=== PATIENT | female | born 1985 | race Hispanic/Latino ===

== ENCOUNTER 2016-11-14 01:59 | Emergency (ER) | payer SELFPAY ==
[2016-11-14 02:05] VITALS: BP 156/78; PULSE 73; RESP 20; TEMP 98.9; O2SAT 100
[2016-11-14 02:50] LABS: URINE BILIRUBIN SMALL (NEGATIVE); URINE COLOR LIGHT BROWN (YELLOW); URINE GLUCOSE (UA) NEGATIVE (Normal); URINE KETONE NEGATIVE (NEGATIVE)
[2016-11-14 02:50] LABS: BASO # 0.1 K/uL (0.0-0.2); BASO % 1.1 % (0.0-2.0); EOS # 0.3 K/uL (0.0-0.7); EOS % 2.3 % (0.0-4.0); HEMATOCRIT 36.3 % (34.0-47.0); LYMPH # 1.8 K/uL (1.0-4.3); LYMPH % 15.9 % (20.0-40.0); MEAN CORPUSCULAR HEMOGLOBIN 26.9 pg (27.0-31.0); MEAN CORPUSCULAR HGB CONC 32.3 g/dL (33.0-37.0); MONO # 0.8 K/uL (0.0-0.8); MONO % 7.2 % (0.0-10.0); NEUT # 8.2 K/uL (1.8-7.0); NEUT % 73.5 % (50.0-75.0); NRBC % 0.1 % (0.0-0.0); RED CELL DISTRIBUTION WIDTH 14.3 % (11.5-14.5); WHITE BLOOD COUNT 11.2 K/uL (4.8-10.8)
[2016-11-14 02:51] LABS: URINE BLOOD LARGE (NEGATIVE); URINE PROTEIN TRACE mg/dL (NEGATIVE)
[2016-11-14 02:52] LABS: URINE LEUKOCYTE ESTERASE TRACE Leu/uL (Negative); URINE UROBILINOGEN 0.2 mg/dL (0.2-1.0)
[2016-11-14 02:53] LABS: RBC URINE 2075 /hpf (0-3); WBC URINE 19 /hpf (0-5)
--- NOTE | 2016-11-14 04:11 | ED PDOC ---
HPI: Abdomen Time Seen by Provider: 11/14/16 02:04 Chief Complaint (Nursing): Abdominal Pain Chief Complaint (Provider): Abdominal Pain History Per: Patient History/Exam Limitations: no limitations Onset/Duration Of Symptoms: Days (1x) Current Symptoms Are (Timing): Still Present Severity: Moderate Location Of Pain/Discomfort: Suprapubic Quality Of Discomfort: Cramping Associated Symptoms: denies: Nausea, Vomiting Additional Complaint(s): 31 year old female , 7 weeks , presents to the ED with complaints of abdominal cramping pain that started yesterday with associated symptoms of spotting (mild bleeding). She states that she hasn't had an ultrasound during her yet, the first one is scheduled 5x days from today. She denies having any other symptoms including nausea and vomiting. PMD: Zoie Craig MD Abnormal Vaginal Bleeding: Yes : 1 Para: 0 Past Medical History Reviewed: Historical Data, Nursing Documentation, Vital Signs Vital Signs: Last Vital Signs Temp 98.9 F 11/14/16 02:03 Pulse 73 11/14/16 02:03 Resp 20 11/14/16 02:03 BP 156/78 H 11/14/16 02:03 Pulse Ox 100 11/14/16 04:27 - Medical History PMH: No Chronic Diseases - Family History Family History: States: Unknown Family Hx - Social History Alcohol: None Drugs: Denies - Home Medications Home Medications: Ambulatory Orders Medication Instructions Recorded Vit No.126/Iron/FA 1 tab PO DAILY 11/14/16 [Classic Tablet] - Allergies Allergies/Adverse Reactions: Allergies Allergy/AdvReac Type Severity Reaction Status Date / Time No Known Allergies Allergy Verified 11/14/16 02:02 Review of Systems ROS Statement: Except As Marked, All Systems Reviewed And Found Negative Gastrointestinal: Positive for: Abdominal Pain (cramping). Negative for: Nausea , Vomiting Genitourinary Female: Positive for: Vaginal Bleeding (mild bleeding) Physical Exam - Reviewed Nursing Documentation Reviewed: Yes Vital Signs Reviewed: Yes - Physical Exam Appears: Positive for: Well, Non-toxic, No Acute Distress Head Exam: Positive for: ATRAUMATIC, NORMOCEPHALIC Skin: Positive for: Normal Color Eye Exam: Positive for: Normal appearance ENT: Positive for: Normal ENT Inspection Neck: Positive for: Normal Cardiovascular/Chest: Positive for: Regular Rate, Rhythm Respiratory: Positive for: Normal Breath Sounds Pelvic Exam: Positive for: External Exam Normal, Bimanual Exam Normal, No Cerv. 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 OS is finger with apart) Neurologic/Psych: Positive for: Alert, Oriented (3x) - Laboratory Results Result Diagrams: 11/14/16 02:46 11/14/16 02:46 - ECG O2 Sat by Pulse Oximetry: 100 (RA) Pulse Ox Interpretation: Normal - CT Scan/US US transvaginal Other Rad Studies (CT/US): Read By Radiologist, Radiology Report Reviewed Medical Decision Making Medical Decision Makin:04 Initial impression: 31 year old female with abdominal cramping and spotting. Differential diagnoses include but are not limited to a threatened vs spontaneous vs ectopic . Initial plan: * US OB transvaginal * type and screen * BMP * beta-hcg guantitative * CBC * chlamydia/GC RNA, TMA * urine culture * urinalysis * reevaluation 3:37 FINDINGS: Gestation: Irregular elongated gestational sac extending into cervical canal. pole. No heartbeat detected. Mikes-rump length of 1.11 cm, correlating with gestational age of 7 weeks 2 days. Mean sac diameter of 4.27 cm, correlating with gestational age of 9 weeks 5 days. Uterus/cervix: No subchorionic hemorrhage. Open cervix with gestational sac extending into cervical canal. Ovaries: Normal ovaries. No adnexal masses. Free fluid: No significant free fluid. IMPRESSION: 1. Findings compatible with demise/ in progress. 2. Incidental/non-acute findings are described above. 4:19 Discussed ultrasound report and findings with patient. Informed patient about diagnosis and explained that she will likely experience increased bleeding as she expels the fetus. Patient will follow up with her [facility] this week. Scribe Attestation: Documented by Preeti Harman, acting as a scribe for Uriel Strauss MD. Provider Scribe Attestation: All medical record entries made by the Scribe were at my direction and personally dictated by me. I have reviewed the chart and agree that the record accurately reflects my personal performance of the history, physical exam, medical decision making, and the department course for this patient. I have also personally directed, reviewed, and agree with the discharge instructions and disposition. Disposition - Clinical Impression Clinical Impression: , spontaneous - Disposition Disposition Time: 04:19 Condition: STABLE Additional Instructions: Please followup at your scheduled appointment for a repeat ultrasound. Instructions: Spontaneous Miscarriage (ED)
[2016-11-14 04:34] LABS: BLOOD UREA NITROGEN 13 mg/dl (7-17); GFR AFRICAN-AMERICAN > 60; GLUCOSE,RANDOM 103 mg/dL (65-105); POTASSIUM 4.1 MMOL/L (3.6-5.0); SODIUM 140 mmol/l (132-148)
[2016-11-14 04:35] LABS: CALCIUM 9.7 mg/dL (8.4-10.2); CARBON DIOXIDE 24 mmol/L (22-30); CHLORIDE 105 mmol/L (98-107)
--- NOTE | 2016-11-14 12:41 | US ---
PROCEDURE: OB Pelvic Ultrasound HISTORY: 12 wks, abd pain, VB COMPARISON: None available. FINDINGS: UTERUS: Single Live intrauterine gestation. CRL equivalent to 7 weeks and 2 days gestatioin Gestational sac diameter equivalent to 9 weeks and 5 days gestation age (Ultrasound estimated): 8 weeks and 4 days Date of delivery (Ultrasound estimated) : 06/22/2017 Heart rate: bpm. Octavia-gestational hemorrhage: None. Uterus measures 11.8 x 6.4 x 0.3 cm. Single intrauterine gestation with a irregular elongated gestational cyst extending into the cervical canal. heart cardiac activity is not identified. CERVIX: Open cervix with gestational sac extending into the canal. RIGHT OVARY: Measures 2.5 x 1.9 x 2.0 cm. No mass. Normal flow. LEFT OVARY: Measures 2.2 x 1.5 x 1.7 cm. No mass. Normal flow. FREE FLUID: None. OTHER FINDINGS: None. IMPRESSION: Single intrauterine gestation with mean gestational age of 8 weeks and 4 days. cardiac activity cannot be documented and findings are concerning for demise/ in progress. A preliminary report was provided by [facility].
== END 2016-11-14 04:30 | disposition home or self-care (01) ==
LOC: H.ER 01:59
DX: O03.9 Complete or unspecified spontaneous abortion without complication (principal); R10.9 Unspecified abdominal pain; Z3A.08 8 weeks gestation of pregnancy

== ENCOUNTER 2016-11-26 22:21 | Emergency (ER) | payer SELFPAY ==
[2016-11-26 22:34] VITALS: BP 131/71; PULSE 74; RESP 18; TEMP 98.6; O2SAT 100
[2016-11-26] MEDS ORDERED: Lactated Ringer's 1,000 ML IV STA (23:30)
[2016-11-27 00:06] LABS: BASO # 0.1 K/uL (0.0-0.2); BASO % 0.6 % (0.0-2.0); EOS # 0.2 K/uL (0.0-0.7); EOS % 1.4 % (0.0-4.0); HEMATOCRIT 30.9 % (34.0-47.0); LYMPH # 1.8 K/uL (1.0-4.3); LYMPH % 13.8 % (20.0-40.0); MEAN CELL VOLUME 81.7 fl (81.0-99.0); MEAN CORPUSCULAR HEMOGLOBIN 26.6 pg (27.0-31.0); MEAN CORPUSCULAR HGB CONC 32.5 g/dL (33.0-37.0); MEAN PLATELET VOLUME 8.3 fl (7.2-11.7); MONO # 0.6 K/uL (0.0-0.8); MONO % 4.8 % (0.0-10.0); NEUT # 10.3 K/uL (1.8-7.0); NEUT % 79.4 % (50.0-75.0); RED CELL DISTRIBUTION WIDTH 14.1 % (11.5-14.5)
[2016-11-27 00:12] LABS: ALB/GLOB RATIO 1.2 (1.0-2.1); ALKALINE PHOSPHATASE 77 U/L (38-126); ALT/SGPT 24 U/L (9-52); AST/SGOT 24 U/L (14-36); BILIRUBIN,TOTAL 0.4 mg/dl (0.2-1.3); BLOOD UREA NITROGEN 16 mg/dl (7-17); CALCIUM 9.9 mg/dL (8.4-10.2); CARBON DIOXIDE 25 mmol/L (22-30); CHLORIDE 105 mmol/L (98-107); GFR AFRICAN-AMERICAN > 60; GLUCOSE,RANDOM 113 mg/dL (65-105); LIPASE 66 U/L (23-300); SODIUM 140 mmol/l (132-148); TOTAL PROTEIN 7.5 G/DL (6.3-8.2)
[2016-11-27] MEDS ORDERED: Sodium Chloride 0.9% 50 ML IV ONE (00:30)
[2016-11-27] MEDS ORDERED: Iohexol 300 100 ML IJ ONE (00:30)
--- NOTE | 2016-11-27 00:34 | ED PDOC ---
HPI: Abdomen Time Seen by Provider: 11/26/16 22:49 Chief Complaint (Nursing): Abdominal Pain Chief Complaint (Provider): Right Upper Quadrant Pain History Per: Patient History/Exam Limitations: no limitations Onset/Duration Of Symptoms: Hrs (since 17:00 11/26/16) Current Symptoms Are (Timing): Still Present Location Of Pain/Discomfort: RUQ Additional Complaint(s): 22:49 Citlaly Burns is a 31 year old female with a history of asthma that presents to the ED with a chief complaint of sharp, constant RUQ pain that she has been experiencing since 5 PM today. Patient states that the paint has been worsening since onset and slightly radiated to her back as well as that she has never experienced this type of pain before. She adenies any nausea, vomiting, diarrhea, constipation, vaginal discharge or vaginal bleeding. Of note: Patient had a recent miscarriage two weeks ago. Past Medical History Reviewed: Historical Data, Nursing Documentation, Vital Signs Vital Signs: Last Vital Signs Temp 98.6 F 11/26/16 22:32 Pulse 74 11/26/16 22:32 Resp 18 11/26/16 22:32 BP 131/71 11/26/16 22:32 Pulse Ox 100 11/27/16 02:48 - Medical History PMH: Asthma - Surgical History Surgical History: No Surg Hx - Family History Family History: States: Unknown Family Hx - Social History Current smoker - smoking cessation education provided: No - Home Medications Home Medications: Ambulatory Orders Medication Instructions Recorded Vit No.126/Iron/Folic 1 tab PO DAILY 11/14/16 [Classic Tablet] oxyCODONE/Acetaminophen [Percocet 1 ea PO Q6 PRN #8 tab 11/27/16 5/325 mg Tab] - Allergies Allergies/Adverse Reactions: Allergies Allergy/AdvReac Type Severity Reaction Status Date / Time No Known Allergies Allergy Verified 11/14/16 02:02 Review of Systems Gastrointestinal: Positive for: Abdominal Pain (ruq pain). Negative for: Nausea , Vomiting, Diarrhea, Constipation Musculoskeletal: Positive for: Back Pain (ruq pain slightly radiates to back) Physical Exam - Reviewed Nursing Documentation Reviewed: Yes Vital Signs Reviewed: Yes - Physical Exam Appears: Positive for: Non-toxic, In Acute Distress (in moderate painful distress) Head Exam: Positive for: ATRAUMATIC, NORMOCEPHALIC Skin: Positive for: Normal Color, Warm Cardiovascular/Chest: Positive for: Regular Rate, Rhythm. Negative for: Murmur Respiratory: Positive for: Normal Breath Sounds. Negative for: Wheezing Gastrointestinal/Abdominal: Positive for: Soft. Negative for: Mass, Distended, Guarding, Rebound Back: Positive for: R CVA Tenderness. Negative for: L CVA Tenderness, Vertebral Tenderness, Decreased ROM, Muscle Spasm Neurologic/Psych: Positive for: Alert, Oriented - Laboratory Results Result Diagrams: 11/26/16 00:03 11/26/16 00:03 - ECG O2 Sat by Pulse Oximetry: 100 (RA) Pulse Ox Interpretation: Normal Medical Decision Making Medical Decision Makin:26 Initial Impression: RUQ Pain Initial Plan: * CT A/P with IV contrast * Urine dip * Urine preg * Lactated ringers 1000 mL * Morphine 4 mg * Reevalutation 00:00 Will endorse patient to Dr. Manuel MD. Scribe Attestation: Documented by Janett Ledesma, acting as a scribe for Anisa Jiménez MD. Provider Scribe Attestation: All medical record entries made by the Scribe were at my direction and personally dictated by me. I have reviewed the chart and agree that the record accurately reflects my personal performance of the history, physical exam, medical decision making, and the department course for this patient. I have also personally directed, reviewed, and agree with the discharge instructions and disposition. Disposition - Clinical Impression Clinical Impression: Abdominal pain - Disposition Disposition: Transfer of Care Disposition Time: 00:00 Condition: STABLE Prescriptions: oxyCODONE/Acetaminophen [Percocet 5/325 mg Tab] 1 ea PO Q6 PRN #8 tab PRN Reason: Pain, Severe (8-10)
[2016-11-27 01:00] LABS: PARTIAL THROMBOPLASTIN TIME 25.7 SECONDS (23.3-32.5)
--- NOTE | 2016-11-27 01:09 | ED PDOC ---
- Laboratory Results Result Diagrams: 11/26/16 00:03 11/26/16 00:03 - ECG O2 Sat by Pulse Oximetry: 100 (RA) - Progress Re-evaluation Time: 02:48 Condition: Re-examined, Improved Medical Decision Making Medical Decision Makin:00 Patient transferred over to Dr. Jackson pending CT Abdomen. EXAM: CT Abdomen and Pelvis With Intravenous Contrast CLINICAL HISTORY: 31 years old, female; Pain; Abdominal pain; Localized; Right upper quadrant (ruq ); Additional info: Abd pain ruq TECHNIQUE: Axial computed tomography images of the abdomen and pelvis with intravenous contrast. This CT exam was performed using one or more of the following dose reduction techniques : automated exposure control, adjustment of the mA and/or kV according to patient size, and/ or use of iterative reconstruction technique. Coronal and sagittal reformatted images were created and reviewed. CONTRAST: 95 mL of [id number] administered intravenously. COMPARISON: US - OB TRANSVAGINAL 11/14/2016 3:02:48 AM FINDINGS: The liver, spleen, pancreas and adrenal glands demonstrate no acute abnormalities. The kidneys are symmetric with no evidence of hydronephrosis. The aorta is unremarkable. Small bowel demonstrates bowel wall thickening consistent with acute enteritis. Question bowel wall thickening involving the colon. Small amount of ascites. No free air. Bilateral L5 pars defect. IMPRESSION: Small bowel demonstrates bowel wall thickening consistent with acute enteritis. Question bowel wall thickening involving the colon. Small amount of ascites. Bilateral L5 pars defec Disposition Doctor Will See Patient In The: Office Counseled Patient/Family Regarding: Studies Performed, Diagnosis, Need For Followup - Clinical Impression Clinical Impression: Enteritis, Abdominal pain - POA Present On Arrival: None - Disposition Referrals: Elsa Disla MD [Medical Doctor] - Disposition: Routine/Home Disposition Time: 02:46 Condition: GOOD Additional Instructions: Return for worsening. Follow up with your PCP in 2-3 days. Prescriptions: oxyCODONE/Acetaminophen [Percocet 5/325 mg Tab] 1 ea PO Q6 PRN #8 tab PRN Reason: Pain, Severe (8-10) Instructions: Abdominal Pain (ED)
--- NOTE | 2016-11-27 01:20 | CT ---
EXAM: CT Abdomen and Pelvis With Intravenous Contrast CLINICAL HISTORY: 31 years old, female; Pain; Abdominal pain; Localized; Right upper quadrant (ruq); Additional info: Abd pain ruq TECHNIQUE: Axial computed tomography images of the abdomen and pelvis with intravenous contrast. This CT exam was performed using one or more of the following dose reduction techniques: automated exposure control, adjustment of the mA and/or kV according to patient size, and/or use of iterative reconstruction technique. Coronal and sagittal reformatted images were created and reviewed. CONTRAST: 95 mL of [id number] administered intravenously. COMPARISON: US - OB TRANSVAGINAL 11/14/2016 3:02:48 AM FINDINGS: The liver, spleen, pancreas and adrenal glands demonstrate no acute abnormalities. The kidneys are symmetric with no evidence of hydronephrosis. The aorta is unremarkable. Small bowel demonstrates bowel wall thickening consistent with acute enteritis. Question bowel wall thickening involving the colon. Small amount of ascites. No free air. Bilateral L5 pars defect. IMPRESSION: Small bowel demonstrates bowel wall thickening consistent with acute enteritis. Question bowel wall thickening involving the colon. Small amount of ascites. Bilateral L5 pars defect.
== END 2016-11-27 02:56 | disposition home or self-care (01) ==
LOC: H.ER 22:21
DX: R10.11 Right upper quadrant pain (principal); K52.9 Noninfective gastroenteritis and colitis, unspecified; J45.909 Unspecified asthma, uncomplicated; R16.1 Splenomegaly, not elsewhere classified
CPT/HCPCS: 74177; 80053; 81025; 83690; 85025; 85610; 85730; 96361; 96374; 99283; J2270; J7120; Q9967